=== PATIENT | female | born 1965 | race Caucasian/White ===

== ENCOUNTER → 2023-12-18 15:43 | Outpatient (REF) | payer BC, SELFPAY | LOC: MRI 3T 15:43 | PROVIDERS: ATTENDING PHYSICIAN Internal Medicine | DX: M25.561 Pain in right knee (principal) | CPT/HCPCS: 73721 ==

== ENCOUNTER → 2024-02-05 14:48 | Outpatient (REF) | payer BC, SELFPAY | LOC: WDC 14:48 | PROVIDERS: ATTENDING PHYSICIAN Obstetrics & Gynecology; FAMILY PHYSICIAN Internal Medicine | DX: Z12.31 Encounter for screening mammogram for malignant neoplasm of breast (principal) | CPT/HCPCS: 77063; 77067 ==

== ENCOUNTER → 2024-05-08 06:09 | Outpatient (REF) | payer BC, SELFPAY ==
[2024-05-08 09:57] LABS: % Basophils 0.8 % (0-2); % Eosinophils 2.6 % (0-6); % Immature Granulocytes 0.3 % (0-0.5); % Lymphocytes 42.9 % (20.5-51.1); % Monocytes 7.1 % (1.7-9.3); % Neutrophils 46.3 % (42.2-75.2); Absolute Basophils 0.1 10^3/uL (0-0.2); Absolute Eosinophils 0.2 10^3/uL (0-0.7); Absolute Lymphocytes 2.7 10^3/uL (1.2-3.4); Absolute Monocytes 0.4 10^3/uL (0.1-0.6); Absolute Neutrophils 2.9 10^3/uL (1.4-6.5); Hematocrit 41.9 % (37.0-47.0); Hemoglobin 14.7 g/dL (12.0-16.0); Mean Corp Hgb Conc. 35.1 g/dL (33.0-37.0); Mean Corpuscular Volume 93.9 fL (81.0-99.0); Mean Platelet Volume 9.2 fL (7.4-10.4); Nucleated Red Blood Cells % 0 %; Platelet Count 246 10^3/uL (130-400); Red Blood Cell Count 4.46 10^6/uL (4.20-5.40); Red Cell Dist. Width 13.1 % (11.5-14.5); White Blood Cell Count 6.2 10^3/uL (4.8-10.8)
[2024-05-08 10:23] LABS: Vitamin D, 25-OH*** 55.5 ng/mL (30-80)
[2024-05-08 11:17] LABS: ALT (SGPT) 31 U/L (0-35); AST (SGOT) 46 U/L (14-36); Albumin 5.1 g/dl (3.5-5.0); Alkaline Phosphatase 73 U/L (38-126); Blood Urea Nitrogen 23 mg/dl (7-17); Calcium 9.9 mg/dl (8.4-10.2); Carbon Dioxide 29 mmol/L (22-30); Chloride 98 mmol/L (98-107); Glucose 104 mg/dl (70-99); Potassium 4.5 mmol/L (3.5-5.1); Sodium 140 mmol/L (135-145); Total Bilirubin 1.1 mg/dl (0.2-1.3); Total Cholesterol 248 mg/dl (50-199); Total Protein 7.3 g/dl (6.3-8.2); Triglyceride 132 mg/dl (10-149); Very Low Density Lipoprotein 26 mg/dl (0-30); eGFR > 60.00
[2024-05-08 11:29] LABS: Urine Albumin Trace (Neg - Trace); Urine Bilirubin Negative (Negative); Urine Character Clear (Clear); Urine Color Yellow; Urine Glucose Negative (Negative); Urine Ketone Negative (Negative); Urine Leukocyte Trace (Negative); Urine Nitrite Negative (Negative); Urine Occult Blood Negative (Negative); Urine Urobilinogen Negative (Neg - 1+)
[2024-05-08 11:43] LABS: Urine Red Blood Cell None Seen /HPF (0-2)
[2024-05-08 12:06] LABS: HDL Cholesterol 110 mg/dl; LDL Cholesterol, Calculated 112 mg/dl
== END ==
LOC: HWLAB 06:09
PROVIDERS: ATTENDING PHYSICIAN Internal Medicine
DX: E55.9 Vitamin D deficiency, unspecified (principal); I10 Essential (primary) hypertension; E78.2 Mixed hyperlipidemia
CPT/HCPCS: 36415; 80053; 80061; 81003; 81015; 82306; 85025

== ENCOUNTER → 2024-10-23 09:00 | Outpatient (REF) | payer BC, SELFPAY | LOC: WDC 09:00 | PROVIDERS: ATTENDING PHYSICIAN Obstetrics & Gynecology; FAMILY PHYSICIAN Internal Medicine | DX: N63.21 Unspecified lump in the left breast, upper outer quadrant (principal) | CPT/HCPCS: 76642; 77065 ==

== ENCOUNTER → 2024-11-14 06:43 | Outpatient (REF) | payer BC, SELFPAY | LOC: HWRAD 06:43 | PROVIDERS: ATTENDING PHYSICIAN Internal Medicine | DX: M79.642 Pain in left hand (principal) | CPT/HCPCS: 73120 ==

== ENCOUNTER 2024-12-25 15:25 | Outpatient (RCR) | payer BC, SELFPAY | END 2024-12-25 23:59 | disposition home or self-care (01) | LOC: ROT 15:25 | PROVIDERS: ATTENDING PHYSICIAN Orthopaedic Surgery Hand Surgery; FAMILY PHYSICIAN Internal Medicine | DX: M19.042 Primary osteoarthritis, left hand (principal); Z73.6 Limitation of activities due to disability | CPT/HCPCS: 97018; 97110; 97140; 97166; 97535; 97760 ==

== ENCOUNTER 2025-01-08 14:57 | Outpatient (RCR) | payer BC, SELFPAY | END 2025-01-08 23:59 | disposition home or self-care (01) | LOC: ROT 14:57 | PROVIDERS: ATTENDING PHYSICIAN Orthopaedic Surgery Hand Surgery; FAMILY PHYSICIAN Internal Medicine | DX: M19.042 Primary osteoarthritis, left hand (principal); Z73.6 Limitation of activities due to disability | CPT/HCPCS: 97018; 97110; 97140 ==

== ENCOUNTER → 2025-02-05 14:53 | Outpatient (REF) | payer BC, SELFPAY | LOC: WDC 14:53 | PROVIDERS: ATTENDING PHYSICIAN Obstetrics & Gynecology; FAMILY PHYSICIAN Internal Medicine | DX: Z12.31 Encounter for screening mammogram for malignant neoplasm of breast (principal) | CPT/HCPCS: 77063; 77067 ==

== ENCOUNTER → 2025-03-04 15:20 | Outpatient (REF) | payer BC, SELFPAY | LOC: HWRAD 15:20 | PROVIDERS: ATTENDING PHYSICIAN Nurse Practitioner Family | DX: M54.16 Radiculopathy, lumbar region (principal); M79.671 Pain in right foot | CPT/HCPCS: 72110; 73610; 73630 ==

== ENCOUNTER → 2025-05-21 06:04 | Outpatient (REF) | payer BC, SELFPAY ==
[2025-05-21 09:40] LABS: Hematocrit 42.1 % (37.0-47.0); Hemoglobin 14.3 g/dL (12.0-16.0); Mean Corp Hgb Conc. 34.0 g/dL (33.0-37.0); Mean Corpuscular Volume 95.2 fL (81.0-99.0); Nucleated Red Blood Cells % 0 %; Platelet Count 242 10^3/uL (130-400); Red Cell Dist. Width 13.1 % (11.5-14.5)
[2025-05-21 09:46] LABS: Urine Character Clear (Clear)
[2025-05-21 10:12] LABS: ALT (SGPT) 29 U/L (0-35); AST (SGOT) 36 U/L (14-36); Albumin 4.8 g/dl (3.5-5.0); Alkaline Phosphatase 67 U/L (38-126); Blood Urea Nitrogen 18 mg/dl (7-17); Calcium 9.9 mg/dl (8.4-10.2); Carbon Dioxide 31 mmol/L (22-30); Chloride 100 mmol/L (98-107); Glucose 90 mg/dl (70-99); HDL Cholesterol 101 mg/dl; LDL Cholesterol, Calculated 104 mg/dl; Potassium 4.0 mmol/L (3.5-5.1); Sodium 138 mmol/L (135-145); Total Protein 7.2 g/dl (6.3-8.2); Very Low Density Lipoprotein 17 mg/dl (0-30); eGFR > 60.00
[2025-05-21 10:42] LABS: TSH 2.58 uIU/ml (0.47-4.68)
[2025-05-21 10:56] LABS: Urine Red Blood Cell 0-2 /HPF (0-2); Urine White Cell 0-2 /HPF (0-5)
== END ==
LOC: HWLAB 06:04
PROVIDERS: ATTENDING PHYSICIAN Internal Medicine
DX: I10 Essential (primary) hypertension (principal)
CPT/HCPCS: 36415; 80053; 80061; 81003; 81015; 84443; 85025